=== PATIENT | male | born 1995 | race Caucasian/White ===

== ENCOUNTER → 2022-01-19 15:04 | Outpatient (BNVA) | payer MEDICAID, SELFPAY | PROVIDERS: Family Provider Family Medicine; Visit Provider Surgery | DX: L89.90 Pressure ulcer of unspecified site, unspecified stage (principal) | CPT/HCPCS: 99203 ==

== ENCOUNTER 2022-01-28 17:33 | Outpatient (RCR) | payer MEDICAID, SELFPAY | END 2022-01-31 23:59 | disposition home or self-care (01) | LOC: SPT 17:33 | PROVIDERS: PCP Family Medicine; Referring Provider Specialist; Visit Provider Specialist | DX: S24.154D Other incomplete lesion at T11-T12 level of thoracic spinal cord, subsequent encounter (principal); X58.XXXD Exposure to other specified factors, subsequent encounter; M62.81 Muscle weakness (generalized) | CPT/HCPCS: 97110; 97162; 97530 ==

== ENCOUNTER 2022-02-01 06:00 | Outpatient (RCR) | payer MEDICAID, SELFPAY | END 2022-03-03 23:59 | disposition home or self-care (01) | LOC: SPT 06:00 | PROVIDERS: PCP Specialist; Referring Provider Specialist; Visit Provider Specialist | DX: T14.8XXD Other injury of unspecified body region, subsequent encounter (principal); X58.XXXD Exposure to other specified factors, subsequent encounter | CPT/HCPCS: 97110; 97530 ==

== ENCOUNTER 2022-02-16 06:00 | Outpatient (RCR) | payer MEDICAID, SELFPAY | END 2022-03-03 23:59 | disposition home or self-care (01) | LOC: SOT 06:00 | PROVIDERS: PCP Family Medicine; Referring Provider Specialist; Visit Provider Specialist | DX: S24.104D Unspecified injury at T11-T12 level of thoracic spinal cord, subsequent encounter (principal); X58.XXXD Exposure to other specified factors, subsequent encounter | CPT/HCPCS: 97140 ==

== ENCOUNTER 2022-02-17 15:53 | Outpatient (CLI) | payer MEDICAID, SELFPAY ==
--- NOTE | 2022-02-17 15:58 | US_ITS ---
WS: [id number] TESTICULAR ULTRASOUND HISTORY: Testicular pain, swelling COMPARISON: None available. TECHNIQUE: Real-time and color Doppler imaging or utilized to perform a testicular ultrasound. Right testicle: 3.8 cm x 2.7 cm x 2.1 cm. Normal size and echogenicity. No mass or torsion. Normal color Doppler is present throughout. Systolic and diastolic velocities are both present. No significant hydrocele. Right epididymis: Normal epididymis with no increased vascularity. Left testicle: 3.7 cm x 2.9 cm x 2.3 cm. Normal size and echogenicity. No mass or torsion. Normal color Doppler is present throughout. Systolic and diastolic velocities are both present. Small hydrocele. Left epididymis: Enlarged heterogeneous epididymis. There is significant increased vascularity. There is also variable echogenicity suggesting edema. No abscess identified within the epididymis. Mild sc rotal wall thickening. US/US scrotum [id number] IMPRESSION: 1. Moderate to severe acute LEFT epididymitis. 2. Small simple LEFT hydrocele. 3. No torsion or orchitis. Notified Watson Bates DO at 02/17/2022 4:42 PM. [employer] called the offi ce with report. No one was available to take the report. The report will be dic tated for review in the morning by the ordering physician.
== END 2022-02-17 15:54 | disposition home or self-care (01) ==
LOC: RAD 15:56
PROVIDERS: PCP Family Medicine; Visit Provider Family Medicine
DX: N50.812 Left testicular pain (principal); N50.89 Other specified disorders of the male genital organs; N45.1 Epididymitis; N43.3 Hydrocele, unspecified
CPT/HCPCS: 76870

== ENCOUNTER 2022-03-04 06:00 | Outpatient (RCR) | payer MEDICAID, SELFPAY | END 2022-03-18 23:59 | disposition home or self-care (01) | LOC: SPT 06:00 | PROVIDERS: PCP Family Medicine; Referring Provider Specialist; Visit Provider Specialist | DX: G95.9 Disease of spinal cord, unspecified (principal); M62.81 Muscle weakness (generalized) | CPT/HCPCS: 97110; 97530 ==

== ENCOUNTER 2022-03-04 06:00 | Outpatient (RCR) | payer MEDICAID, SELFPAY | END 2022-04-01 09:30 | disposition home or self-care (01) | LOC: SOT 06:00 | PROVIDERS: PCP Family Medicine; Referring Provider Specialist; Visit Provider Specialist | DX: T14.8XXD Other injury of unspecified body region, subsequent encounter (principal); X58.XXXD Exposure to other specified factors, subsequent encounter | CPT/HCPCS: 97140 ==

== ENCOUNTER → 2022-04-22 15:05 | Outpatient (BNVA) | payer MEDICAID, SELFPAY | PROVIDERS: PCP Family Medicine; Visit Provider Nurse Practitioner Family | DX: N31.9 Neuromuscular dysfunction of bladder, unspecified (principal); G82.20 Paraplegia, unspecified; N39.0 Urinary tract infection, site not specified | CPT/HCPCS: G0463; 99203 ==

== ENCOUNTER → 2022-05-11 13:00 | Outpatient (BNVA) | payer MEDICAID, SELFPAY | PROVIDERS: PCP Family Medicine; Visit Provider Family Medicine | DX: G82.20 Paraplegia, unspecified (principal); M62.838 Other muscle spasm; R60.9 Edema, unspecified; N31.9 Neuromuscular dysfunction of bladder, unspecified | CPT/HCPCS: 80053; 82607; 83540; 83735; 85025 ==

== ENCOUNTER 2022-06-23 12:15 | Outpatient (CLI) | payer MEDICAID, SELFPAY ==
--- NOTE | 2022-06-23 12:45 | US_ITS ---
WS: [id number] RENAL ULTRASOUND HISTORY: Neurogenic Bladder COMPARISON: None available. TECHNIQUE: 2-D and color Doppler imaging of the kidney submitted. Right kidney: 10.6 cm x 4.0 cm x 5.0 cm. Normal echogenicity with no hydronephrosis or mass. Left kidney: 11.2 cm x 5.0 cm x 5.0 cm. Normal echogenicity with no hydronephrosis or mass. Aorta: Normal. Urinary Bladder: Normal distention. US/US renal BI* [id number] IMPRESSION: Normal renal ultrasound. Normal distention of the urinary bladder.
== END 2022-06-23 12:16 | disposition home or self-care (01) ==
LOC: RAD 12:16
PROVIDERS: PCP Family Medicine; Visit Provider Nurse Practitioner Family
DX: N31.9 Neuromuscular dysfunction of bladder, unspecified (principal); N39.0 Urinary tract infection, site not specified
CPT/HCPCS: 76770; 99213

== ENCOUNTER → 2023-04-08 15:08 | Outpatient (BNVA) | payer MEDICAID, SELFPAY | PROVIDERS: PCP Family Medicine; Visit Provider Family Medicine | DX: N39.0 Urinary tract infection, site not specified (principal) | CPT/HCPCS: 81003; 87077; 87086; 87184 ==

== ENCOUNTER → 2023-08-31 15:55 | Outpatient (BNVA) | payer MEDICAID, SELFPAY | PROVIDERS: PCP Family Medicine; Visit Provider Nurse Practitioner Family | DX: N39.0 Urinary tract infection, site not specified (principal) | CPT/HCPCS: 81000; 87086 ==

== ENCOUNTER → 2024-01-10 15:31 | Outpatient (BNVA) | payer MEDICAID, SELFPAY | PROVIDERS: PCP Family Medicine; Visit Provider Family Medicine | DX: N39.0 Urinary tract infection, site not specified (principal) | CPT/HCPCS: 81000; 81003; 87077; 87086; 87184 ==